=== PATIENT | male | born 1985 | race Caucasian/White ===

== ENCOUNTER 2018-10-05 21:29 | Emergency (ER) | payer MEDICAID ==
[~2018-10-05] VITALS: Ht 172.7 cm; Wt 59.0 kg
[2018-10-06] MEDS ORDERED: KETOROLAC 30MG/ML VIAL IM ONE (04:45)
[2018-10-06 16:07] VITALS: BP 91/58
== END 2018-10-06 16:15 | disposition home or self-care (01) ==
LOC: ER 21:29
DX: S80.212A Abrasion, left knee, initial encounter (principal); Z59.0 Homelessness; Z88.0 Allergy status to penicillin; Y93.01 Activity, walking, marching and hiking; Y93.89 Activity, other specified; Y92.89 Other specified places as the place of occurrence of the external cause; Y99.8 Other external cause status
CPT/HCPCS: 73560; 73590; 96372; 99283; J1885; Z7610

== ENCOUNTER 2018-10-07 01:09 | Emergency (ER) | payer SELFPAY | END 2018-10-07 01:45 | disposition left against medical advice (07) | LOC: ER 01:09 | DX: Z53.21 Procedure and treatment not carried out due to patient leaving prior to being seen by health care provider (principal); Z88.0 Allergy status to penicillin ==

== ENCOUNTER 2018-10-07 10:26 | Emergency (ER) | payer MEDICAID | END 2018-10-07 12:13 | disposition left against medical advice (07) | LOC: ER 10:26 | DX: Z53.21 Procedure and treatment not carried out due to patient leaving prior to being seen by health care provider (principal) ==

== ENCOUNTER 2018-10-07 19:22 | Emergency (ER) | payer MEDICAID ==
[~2018-10-07] VITALS: Ht 152.4 cm; Wt 59.0 kg
[2018-10-07 20:33] VITALS: BP 106/75
[2018-10-07] MEDS ORDERED: IBUPROFEN 600MG TABLET PO ONE (22:30)
== END 2018-10-08 02:04 | disposition left against medical advice (07) ==
LOC: ER 19:22
DX: S83.92XA Sprain of unspecified site of left knee, initial encounter (principal); F17.200 Nicotine dependence, unspecified, uncomplicated; X50.1XXA Overexertion from prolonged static or awkward postures, initial encounter; Y93.01 Activity, walking, marching and hiking; Y92.9 Unspecified place or not applicable
CPT/HCPCS: 99283